=== PATIENT | female | born 1965 ===

== ENCOUNTER 2016-08-11 09:03 | Day surgery (SDC) | payer SELFPAY ==
[2016-08-06 09:19] VITALS: BMI 28.3
[2016-08-11 09:33] LABS: ADD MANUAL DIFF? NO
[2016-08-11 09:41] LABS: BASO # 0.03 K/mm3 (0.0-2.0); BASO % 0.5 % (0.0-3.0); EOS % 0.5 % (1.5-5.0); GRAN # 4.36 (1.4-6.5); GRAN % 67.2 % (50.0-68.0); HEMATOCRIT 39.1 % (36.0-48.0); LYMPH # 1.6 (1.2-3.4); MEAN CORPUSCULAR HEMOGLOBIN 27.3 pg (25.0-35.0); MEAN CORPUSCULAR HGB CONC 33.8 g/dl (31.0-37.0); MONO # 0.4 (0.1-0.6); MONO % 6.8 % (1.0-6.0); PLATELET COUNT 316 10^3/uL (120.0-450.0); RED CELL DISTRIBUTION WIDTH 18.1 % (11.5-14.5); WHITE BLOOD COUNT 6.5 10^3/ul (4.5-11.0)
[2016-08-11 09:46] LABS: ALKALINE PHOSPHATASE 98 U/L (38-133); ALT/SGPT 14 U/L (7-56); AST/SGOT 29 U/L (15-39); BILIRUBIN,TOTAL 0.4 mg/dL (0.2-1.3); BLOOD UREA NITROGEN 16 mg/dL (7-21); CALCIUM 9.4 mg/dL (8.4-10.5); CARBON DIOXIDE 25 mmol/L (21-33); CHLORIDE 103 mmol/L (98-107); GFR AFRICAN-AMERICAN > 60; GLUCOSE,RANDOM 106 mg/dL (70-110); POTASSIUM 3.8 mmol/L (3.6-5.0); SODIUM 141 mmol/L (132-148); TOTAL PROTEIN 8.5 g/dL (5.8-8.3)
[2016-08-11 09:47] LABS: INR 1.01 (0.93-1.08); PARTIAL THROMBOPLASTIN TIME 27.9 Seconds (23.7-30.8)
[2016-08-11] MEDS ORDERED: Succinylcholine 200 mg/10 ml Inj IV ONE (11:15)
[2016-08-11] MEDS ORDERED: Propofol 10 mg/ml Inj (20 ML) ONE (11:15)
[2016-08-11] MEDS ORDERED: Indomethacin 50 MG Suppository PR ONE (11:17)
[2016-08-11] MEDS ORDERED: Glucagon Recombinant 1 mg Inj ONE (11:19)
[2016-08-11] MEDS ORDERED: Iohexol 240 (50 ml) ONE (11:19)
[2016-08-11] MEDS ORDERED: Desflurane Inhalation Anesthetic Liq (240 ml) ONE (11:54)
[2016-08-11 12:42] VITALS: TEMP 98.4
[2016-08-11] MEDS ORDERED: Sodium Chloride 0.9% 1,000 ML IV SCH (12:45)
[2016-08-11 13:05] VITALS: RESP 16
[2016-08-11 13:57] VITALS: BP 140/71; PULSE 71; O2SAT 99
== END 2016-08-11 14:15 | disposition home or self-care (01) ==
LOC: ENDO 09:03
PROVIDERS: ATTEND Internal Medicine
DX: K83.8 Other specified diseases of biliary tract (principal); D13.5 Benign neoplasm of extrahepatic bile ducts; K80.20 Calculus of gallbladder without cholecystitis without obstruction
CPT/HCPCS: 36415; 43242; 80053; 85025; 85610; 85730; 88305; J0330; J2704; J3010; J7040 ×2